=== PATIENT | male | born 1990 | race Caucasian/White ===

== ENCOUNTER 2020-07-05 20:39 | Emergency (ER) | payer OTHER ==
[~2020-07-05] VITALS: Ht 172.7 cm; Wt 63.5 kg
[2020-07-05 21:23] VITALS: BP 99/42
== END 2020-07-05 21:02 | disposition home or self-care (01) ==
LOC: ER 20:39 → EDBD 20:39 → ER 21:02
DX: F10.129 Alcohol abuse with intoxication, unspecified (principal); Y90.9 Presence of alcohol in blood, level not specified